=== PATIENT | female | born 1985 | race Caucasian/White ===

== ENCOUNTER → 2020-11-02 10:00 | Outpatient (CLI) | payer BC, SELFPAY ==
--- NOTE | ~2020-11-02 | US_ITS ---
EXAMINATION: US pelvic complete w TV DATE: 11/02/2020 10:34 INDICATION: Pelvic pain. TECHNIQUE: Multiple transabdominal and transvaginal sonographic images of the pelvis were obtained. COMPARISON: None. FINDINGS: TRANSABDOMINAL ULTRASOUND: The uterus measures 8.6 x 3.9 x 6.1 cm. There is no free fluid in the pelvis. TRANSVAGINAL ULTRASOUND: The endometrial complex measures 8 mm in thickness. The right ovary measures 4.1 x 3.2 x 2.4 cm. The left ovary measures 2.6 x 2.7 x 3.1 cm. There is normal vascular flow in the ovaries. IMPRESSION: 1. Normal pelvis. Reviewed, dictated and finalized at location A. IMPRESSION: 1. Normal pelvis.
== END ==
PROVIDERS: PCP Family Medicine; Visit Provider Obstetrics & Gynecology
DX: R10.2 Pelvic and perineal pain (principal)
CPT/HCPCS: 76830; 76856

== ENCOUNTER 2022-05-03 09:01 | Emergency (ER) | payer BC, SELFPAY ==
[2022-05-03 09:11] VITALS: BP 103/77; PULSE 87; RESP 16; TEMP 36.7; O2SAT 100
[2022-05-03] MEDS: methylPREDNISolone SOD SUCC 125 MG VIAL IM (09:29)
--- NOTE | 2022-05-03 09:38 | ED.GENADULT ---
HPI - General Adult General Chief complaint: Allergic Reaction Stated complaint: Rash On Body/ Abdominal Pain Source: patient Mode of arrival: ambulatory Limitations: no limitations History of Present Illness HPI narrative: Patient presents for evaluation of an allergic reaction. She woke up at 1:30 a.m. this morning with hives to her face, chest, back, and extremities x4. No difficulty breathing or swallowing. No new lotions, soaps, detergents, topical products. She had similar symptoms when she took penicillin in the past. She took metronidazole from 04/16/2022 through 04/23/2022. She stayed in a hotel last night. No additional complaints or concerns. Related Data Home Medications Medication Instructions Recorded Confirmed ikhapybvrvw-tgb-pzsthvsvb-hrb 1 tablet PO DAILY 12/07/19 05/03/22 149-hyalur 500 mg-500 mg-66.7 mg tablet (Zomjmbjbzgp-Uqjzwcswiec-ANQ (with antiox)) multivitamin,vu-eqdi-wcfponfx 1 tablet PO DAILY 12/07/19 05/03/22 (Complete Multivitamin tablet) omega-3 fatty acids 500 mg capsule 500 mg PO DAILY 12/07/19 05/03/22 zinc acetate 50 mg (zinc) capsule 50 mg PO DAILY 12/07/19 05/03/22 (Galzin) Saccharomyces boulardii 250 mg 250 mg PO BID 10/07/20 05/03/22 capsule (Daily Probiotic (S. boulardii)) magnesium citrate 125 mg capsule 125 mg PO DAILY 10/07/20 05/03/22 turmeric root extract 500 mg 500 mg PO DAILY 01/30/21 05/03/22 capsule garlic extract 400 mg tablet 400 mg PO DAILY 03/17/22 05/03/22 vitamin B complex (B 1 tablet PO DAILY 03/17/22 05/03/22 Complex-Vitamin B12 tablet) Allergies Allergy/AdvReac Type Severity Reaction Status Date / Time amoxicillin Allergy Unknown Unknown Verified 05/03/22 09:16 Penicillins Allergy Unknown Unknown Verified 05/03/22 09:16 Sulfa (Sulfonamide Allergy Unknown Unknown Verified 05/03/22 09:16 Antibiotics) AMOXICILLIN TRIHYDRATE Allergy Mild Unknown Uncoded 05/03/22 09:16 Review of Systems Review of Systems: CONSTITUTIONAL: Denies fever, chills, or sweats. EYES: Denies visual changes, redness, or discharge. ENT: Denies rhinorrhea, congestion, sore throat, or otalgia. CARDIOVASCULAR: Denies chest pain, palpitations, or edema. RESPIRATORY: Denies cough or dyspnea. GASTROINTESTINAL: Denies abdominal pain, nausea, vomiting, or diarrhea. GENITOURINARY: Denies dysuria or hematuria. SKIN: Reports hives to face, back, chest, extremities x4 MUSCULOSKELETAL: Denies back pain, joint pain, or myalgia. NEUROLOGIC: Denies headache, numbness, dizziness, or weakness. PSYCHIATRIC: Denies anxiety or depression. [facility] Past Medical History Medical History Acid reflux Anemia Anxiety Constipation Depression Diabetes Migraine Pelvic pain Surgical History Surgical History [place] teeth extracted Family History Family History Sibling Asthma Family history of eczema Mother Patient's mother is in good health Father Patient's father is in good health Family history of alcoholism Family history of Alzheimer's disease Grandparent Family history of Alzheimer's disease Family history of hearing loss Other Family history of throat cancer Social History Social History Smoking status: Never smoker Second hand tobacco smoke exposure: No Smoking end date: 03/01/13 Alcohol intake: current Substance use: current Substance use type: marijuana Exam Narrative: GENERAL: Well-appearing, well-nourished, and in no acute distress. HEAD: Normocephalic, atraumatic. EYES: PERRLA and EOMI. ENT: Nares clear, no rhinorrhea or epistaxis. Mucous membranes moist. Oropharynx without tonsillar hypertrophy exudate or other lesions. Bilateral TMs pearly bradshaw nonbulging NECK: Supple. No adenopathy
== END 2022-05-03 09:50 | disposition home or self-care (01) ==
PROVIDERS: Emergency Provider Nurse Practitioner; PCP Family Medicine
DX: L50.0 Allergic urticaria (principal); K21.9 Gastro-esophageal reflux disease without esophagitis; E11.9 Type 2 diabetes mellitus without complications
CPT/HCPCS: 96372; 99213; G0463; J2930

== ENCOUNTER 2022-12-29 13:00 | Emergency (ER) | payer BC, SELFPAY ==
[2022-12-29 13:15] VITALS: BP 110/72; PULSE 71; RESP 16; TEMP 37.1; O2SAT 99
[2022-12-29 13:19] VITALS: BP 110/72; PULSE 71; RESP 16; TEMP 37.1; O2SAT 99
--- NOTE | 2022-12-29 13:55 | ED.FEMALEGU ---
HPI - Female Genitourinary General Chief complaint: Urogenital-Female Stated complaint: UTI Time Seen by Provider: 12/29/22 13:56 Source: patient and RN notes reviewed Mode of arrival: ambulatory Limitations: no limitations History of Present Illness HPI Narrative: 37-year-old female presented for complaint of burning with urination, suprapubic pressure, incomplete bladder emptying, and dark colored urine over the past few days. Endorses blood in the urine today. Hx UTIs. Denies Flank pain, nausea, vomiting, diarrhea, fevers or chills. Not taking anything [id number] for symptoms. Denies concern for STD. Related Data Home Medications Medication Instructions Recorded Confirmed multivitamin,rz-ytsq-mwsaxxil 1 tablet PO DAILY 12/07/19 12/29/22 (Complete Multivitamin tablet) omega-3 fatty acids 500 mg capsule 500 mg PO DAILY 12/07/19 12/29/22 zinc acetate 50 mg (zinc) capsule 50 mg PO DAILY 12/07/19 12/29/22 (Galzin) Saccharomyces boulardii 250 mg 250 mg PO BID 10/07/20 12/29/22 capsule (Daily Probiotic (S. boulardii)) magnesium citrate 125 mg capsule 125 mg PO DAILY 10/07/20 12/29/22 turmeric root extract 500 mg 500 mg PO DAILY 01/30/21 12/29/22 capsule garlic extract 400 mg tablet 400 mg PO DAILY 03/17/22 12/29/22 vitamin B complex (B 1 tablet PO DAILY 03/17/22 12/29/22 Complex-Vitamin B12 tablet) cholecalciferol (vitamin D3) 10 10 mcg PO DAILY 12/29/22 12/29/22 mcg (400 unit) tablet norethindrone 1 mg-ethinyl tablet 12/29/22 estradiol 20 mcg (24)-iron 75 mg (4) tablet (Nydia 24 Fe) Allergies Allergy/AdvReac Type Severity Reaction Status Date / Time amoxicillin Allergy Unknown Unknown Verified 12/29/22 13:18 Penicillins Allergy Unknown Unknown Verified 12/29/22 13:18 Sulfa (Sulfonamide Allergy Unknown Unknown Verified 12/29/22 13:18 Antibiotics) metronidazole Allergy Hives Verified 12/29/22 13:18 nitrofurantoin Allergy Hives Verified 12/29/22 13:18 [From Macrobid] AMOXICILLIN TRIHYDRATE Allergy Mild Unknown Uncoded 12/29/22 13:18 Review of Systems Review of Systems: CONSTITUTIONAL: Denies body aches, fever, chills, or sweats. CARDIOVASCULAR: Denies chest pain, palpitations, or edema. RESPIRATORY: Denies cough or dyspnea. GASTROINTESTINAL: Denies abdominal pain, nausea, vomiting, or diarrhea. GENITOURINARY: Reports dysuria, frequency, urgency, hematuria, denies flank pain SKIN: Denies rash, itching, or wounds. MUSCULOSKELETAL: Denies back pain or myalgia. [facility] Past Medical History Medical History Acid reflux Anemia Anxiety Constipation Depression Diabetes Migraine Pelvic pain Surgical History Surgical History [place] teeth extracted Family History Family History Sibling Asthma Family history of eczema Mother Patient's mother is in good health Father Patient's father is in good health Family history of alcoholism Family history of Alzheimer's disease Grandparent Family history of Alzheimer's disease Family history of hearing loss Other Family history of throat cancer Social History Social History Smoking status: Never smoker Second hand tobacco smoke exposure: No Smoking end date: 03/01/13 Alcohol intake: current Substance use: current Substance use type: marijuana Lack of Transportation: No Lack of Food: Never True Current Housing: I Have Housing Concerned About Future Housing: No Difficulty Paying Gas/Electric Bills: No Difficulty Paying for Meds: No Currently Unemployed: No Education: Decline to Answer Difficulty w/ Childcare or Family Care: No Comments At time of signature, I have reviewed and agree with nursing past medical, surgical, social and family history unless otherwi
== END 2022-12-29 14:04 | disposition home or self-care (01) ==
PROVIDERS: Emergency Provider Nurse Practitioner Family; PCP Family Medicine
DX: N39.0 Urinary tract infection, site not specified (principal); Z87.891 Personal history of nicotine dependence; F12.90 Cannabis use, unspecified, uncomplicated; K21.9 Gastro-esophageal reflux disease without esophagitis; E11.9 Type 2 diabetes mellitus without complications
CPT/HCPCS: 81003; 81025; 87086; 87088; 99213; G0463

== ENCOUNTER 2023-08-30 08:44 | Emergency (ER) | payer BC, SELFPAY ==
[2023-08-30 08:57] VITALS: BP 113/70; PULSE 76; RESP 16; TEMP 36.6; O2SAT 100
--- NOTE | 2023-08-30 09:15 | ED.FEMALEGU ---
HPI - Female Genitourinary General Chief complaint: Urogenital-Female Stated complaint: Urinary Problems Time Seen by Provider: 08/30/23 09:16 Source: patient and RN notes reviewed Mode of arrival: ambulatory Limitations: no limitations History of Present Illness HPI Narrative: 37 y/o female presented for c/o vaginal itching and burning onset 2 days. Started with thin vaginal discharge. Endorses dyspareunia and states the skin appears red. Pt endorses multiple sexual partners in addition to her , but denies know exposures. Denies hematuria, nausea, vomiting, abdominal pain, flank pain, constipation, diarrhea, fevers or chills. Pt is on oral BCP. Related Data Home Medications Medication Instructions Recorded Confirmed multivitamin,vf-oqbr-jcwhhbma 1 tablet PO DAILY 12/07/19 08/18/23 (Complete Multivitamin tablet) omega-3 fatty acids 500 mg capsule 500 mg PO DAILY 12/07/19 08/18/23 zinc acetate 50 mg (zinc) capsule 50 mg PO DAILY 12/07/19 08/18/23 (Galzin) Saccharomyces boulardii 250 mg 250 mg PO BID 10/07/20 08/18/23 capsule (Daily Probiotic (S. boulardii)) magnesium citrate 125 mg capsule 125 mg PO DAILY 10/07/20 08/18/23 turmeric root extract 500 mg 500 mg PO DAILY 01/30/21 08/18/23 capsule garlic extract 400 mg tablet 400 mg PO DAILY 03/17/22 08/18/23 vitamin B complex (B 1 tablet PO DAILY 03/17/22 08/18/23 Complex-Vitamin B12 tablet) cholecalciferol (vitamin D3) 10 10 mcg PO DAILY 12/29/22 08/18/23 mcg (400 unit) tablet norethindrone 1 mg-ethinyl tablet 12/29/22 08/18/23 estradiol 20 mcg (24)-iron 75 mg (4) tablet (Nydia 24 Fe) Allergies Allergy/AdvReac Type Severity Reaction Status Date / Time amoxicillin Allergy Unknown Unknown Verified 08/18/23 10:00 Penicillins Allergy Unknown Unknown Verified 08/18/23 10:00 Sulfa (Sulfonamide Allergy Unknown Unknown Verified 08/18/23 10:00 Antibiotics) metronidazole Allergy Hives Verified 08/18/23 10:00 nitrofurantoin Allergy Hives Verified 08/18/23 10:00 [From Macrobid] AMOXICILLIN TRIHYDRATE Allergy Mild Unknown Uncoded 08/18/23 10:00 Review of Systems Review of Systems: CONSTITUTIONAL: Denies body aches, fever, chills, or sweats. CARDIOVASCULAR: Denies chest pain, palpitations, or edema. RESPIRATORY: Denies cough or dyspnea. GASTROINTESTINAL: Denies abdominal pain, nausea, vomiting, or diarrhea. GENITOURINARY: Reports dysuria, vaginal discharge; denies frequency, urgency, hematuria, flank pain SKIN: Denies rash, itching, or wounds. MUSCULOSKELETAL: Denies back pain or myalgia. [facility] Past Medical History Medical History Acid reflux Anemia Anxiety Constipation Depression Diabetes Migraine Pelvic pain Surgical History Surgical History [place] teeth extracted Family History Family History Sibling Asthma Family history of eczema Mother Patient's mother is in good health Father Patient's father is in good health Family history of alcoholism Family history of Alzheimer's disease Grandparent Family history of Alzheimer's disease Family history of hearing loss Other Family history of throat cancer Social History Social History Smoking status: Never smoker Second hand tobacco smoke exposure: No Smoking end date: 03/01/13 Alcohol intake: current Substance use: current Substance use type: marijuana Lack of Transportation: No Lack of Food: Never True Current Housing: I Have Housing Concerned About Future Housing: No Difficulty Paying Gas/Electric Bills: No Difficulty Paying for Meds: No Currently Unemployed: No Education: Decline to Answer Difficulty w/ Childcare or Family Care: No Comments At time of signature, I have reviewed and agree with nursing
[2023-08-30 10:25] LABS: EDUAAPPEAR Clear; EDUABILI Negative; EDUABLOOD Negative; EDUACOLOR1 Yellow; EDUAGLUCOSE Negative; EDUAKETONE Negative; EDUALEUKO 1+; EDUANITRATE Negative; EDUASPGRAVITY 1.015; EDUAUROBILI 0.2
[2023-08-31 12:41] LABS: Trichomonas Vag PCR NOT DETECTED (NOT DETECTE)
[2023-08-31 12:44] LABS: Chlamydia trachomatis NOT DETECTED (NOT DETECTE); Neisseria gonorrhoeae PCR NOT DETECTED (NOT DETECTE)
[2023-08-31 22:13] LABS: Bacterial Vaginosis POSITIVE (NEGATIVE)
== END 2023-08-30 09:50 | disposition home or self-care (01) ==
PROVIDERS: Emergency Provider Nurse Practitioner Family; PCP Family Medicine
DX: N76.0 Acute vaginitis (principal); Z87.891 Personal history of nicotine dependence; F12.90 Cannabis use, unspecified, uncomplicated; K21.9 Gastro-esophageal reflux disease without esophagitis; E11.9 Type 2 diabetes mellitus without complications
CPT/HCPCS: 81003; 81513; 87070; 87077; 87086; 87088; 87186; 87491; 87591; 87661; 99214; G0463